=== PATIENT | male | born 1965 | race African-American/Black ===

== ENCOUNTER 2021-11-28 02:17 | Emergency (ER) | payer MEDICAID ==
[~2021-11-28] VITALS: Ht 188 cm; Wt 92.0 kg
[2021-11-28 02:26] VITALS: BP 151/86
[2021-11-28] MEDS ORDERED: IBUPROFEN 400MG TABLET PO ONE (06:00)
[2021-11-28] MEDS ORDERED: TOPUD PO (07:43)
[2021-11-28] MEDS ORDERED: IBUPROFEN 400MG TABLET PO SCH (07:45)
== END 2021-11-28 08:31 | disposition home or self-care (01) ==
LOC: ER 02:17
DX: M17.11 Unilateral primary osteoarthritis, right knee (principal); I10 Essential (primary) hypertension; Z87.828 Personal history of other (healed) physical injury and trauma
CPT/HCPCS: 73560; 99283